=== PATIENT | female | born 1980 | race Caucasian/White ===

== ENCOUNTER → 2021-06-01 | Outpatient (CLI) | payer OTHER ==
--- NOTE | 2021-06-05 13:45 | MM ---
Reason for exam: screening (asymptomatic). Last mammogram was performed 10 years and 3 months ago. History: Family history of breast cancer in grandmother at age 40 and breast cancer in aunt. Took hormonal contraceptives for 10 years. Physical Findings: A clinical breast exam by your physician is recommended on an annual basis and results should be correlated with mammographic findings. MG 3D Screening Mammo W/Cad Bilateral CC and MLO view(s) were taken. Prior study comparison: February 15, 2011, bilateral digital screening mammo w/CAD. The breast tissue is heterogeneously dense. This may lower the sensitivity of mammography. No significant changes when compared with prior studies. ASSESSMENT: Negative, BI-RAD 1 RECOMMENDATION: Routine screening mammogram of both breasts in 1 year.
== END | disposition home or self-care (01) ==
LOC: RADMAMWWP 10:56
PROVIDERS: ATTEND Family Medicine
DX: Z12.31 Encounter for screening mammogram for malignant neoplasm of breast (principal); Z80.3 Family history of malignant neoplasm of breast
CPT/HCPCS: 77063; 77067

== ENCOUNTER 2021-12-10 04:12 | Emergency (ER) | payer OTHER ==
[2021-12-10 04:47] VITALS: RESP 19; TEMP 98.2
--- NOTE | 2021-12-10 05:48 | ED ---
Recheck HPI <NegraJessica Km - Last Filed: 12/10/21 09:30> - General Source: patient, family, RN notes reviewed, old records reviewed Mode of arrival: wheelchair Limitations: no limitations - History of Present Illness MD Complaint: other (Concern for leg and ankle swelling) -: hour(s) Returns Today for: persistent/worsening pain related to initial visit Symptoms Since Prior Visit: worsening pain Associated Symptoms: none Treatments Prior to Arrival: other (none) <Abdullahi Macias - Last Filed: 12/10/21 22:56> - General Chief Complaint: Extremity Injury, Lower Stated Complaint: Leg Swelling Time Seen by Provider: 12/10/21 04:52 - History of Present Illness Initial Comments: This is a 41-year-old female who believes that she may have the beginnings or onset of peripheral arterial disease she is scheduled to see vascular surgery. Patient really has no significant medical history no significant are prior episodes of leg swelling. Patient states she was recently a long car ride and now has swollen ankles, she is concerned that worst prefer to go disease maybe recurrent PAD (Abdullahi Macias) - Related Data Previous Rx's Medication Instructions Recorded Cephalexin [Keflex] 250 mg PO Q6HR #10 day 12/23/13 Allergies Allergy/AdvReac Type Severity Reaction Status Date / Time No Known Allergies Allergy Verified 12/10/21 04:47 Review of Systems ROS Other: All systems not noted in ROS Statement are negative. <YvesedelmiraAugustoJessica Km - Last Filed: 12/10/21 09:30> ROS Other: All systems not noted in ROS Statement are negative. <Abdullahi Macias - Last Filed: 12/10/21 22:56> ROS Statement: Those systems with pertinent positive or pertinent negative responses have been documented in the HPI. 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 History of Any Multi-Drug Resistant Organisms: None Reported Past Surgical History: Tubal Ligation Past Psychological History: No Psychological Hx Reported Smoking Status: Never smoker Past Alcohol Use History: None Reported Past Drug Use History: None Reported <Abdullahi Macias - Last Filed: 12/10/21 22:56> General Exam General appearance: alert, in no apparent distress Head exam: Present: atraumatic, normocephalic, normal inspection Eye exam: Present: normal appearance, PERRL, EOMI. Absent: scleral icterus, conjunctival injection, periorbital swelling ENT exam: Present: normal exam, mucous membranes moist Neck exam: Present: normal inspection. Absent: tenderness, meningismus, lymphadenopathy Respiratory exam: Present: normal lung sounds bilaterally. Absent: respiratory distress, wheezes, rales, rhonchi, stridor Cardiovascular Exam: Present: regular rate, normal rhythm, normal heart sounds. Absent: systolic murmur, diastolic murmur, rubs, gallop, clicks GI/Abdominal exam: Present: soft, normal bowel sounds. Absent: distended, tenderness, guarding, rebound, rigid Extremities exam: Present: normal inspection, full ROM, normal capillary refill. Absent: tenderness, pedal edema, joint swelling, calf tenderness Back exam: Present: normal inspection Neurological exam: Present: alert, oriented X3, CN II-XII intact Psychiatric exam: Present: normal affect, normal mood Skin exam: Present: warm, dry, intact, normal color. Absent: rash <Abdullahi Macias - Last Filed: 12/10/21 22:56> - General Exam Comments Initial Comments: Good dorsalis pedis and posterior tibialis pulses bilaterally, +1 edema mostly ankle no pretibial edema (Abdullahi Macias) Course <Abdullahi Macias - Last Filed: 12/10/21 22:56> Vital Signs 12/10/21 12/10/21 04:41 06:47 Temperature 98.2 F Pulse Rate 81 74 Respiratory 19 Rate Blood Pressure 112/69 126/80 O2 Sat by Pulse 100 Oximetry - Reevaluation(s) Reevaluation #1: 12/10/21 Medical record is reviewed (Abdullahi Macias) Reevaluation #2: 12/10/21 Spoke length with patient regarding symptoms and findings, possible causes (Abdullahi Macias) Medical Decision Making - Lab Data Result diagrams: 12/10/21 06:46 12/10/21 06:46 <Jessica Omer - Last Filed: 12/10/21 09:30> - Lab Data Result diagrams: 12/10/21 06:46 12/10/21 06:46 - EKG Data -: EKG Interpreted by Me (EKG is sinus rhythm 7 [place] 159 QRS 87 QTc 411) <Abdullahi Macias - Last Filed: 12/10/21 22:56> - Medical Decision Making Patient was signed out to me pending laboratory studies and Doppler ultrasound. Laboratory studies are within normal limits. Venous Doppler symmetry no signs of DVT. Patient resting comfortably in the room. Swelling has decreased since she has been nonambulatory. I discussed diagnosis, differential treatment options. Patient will be discharged home and is to follow up with Dr. Melgar for her history of arterial disease. Instructed to return for any new or worsening symptoms. Patient was discharged home in stable condition (Jessica Omer) - Lab Data Lab Results 12/10/21 12/10/21 12/10/21 Range/Units 06:46 06:46 06:46 WBC 5.0 (3.8-10.6) k/uL RBC 4.89 (3.80-5.40) m/uL Hgb 13.4 (11.4-16.0) gm/dL Hct 43.7 (34.0-46.0) % MCV 89.3 (80.0-100.0) fL MCH 27.5 (25.0-35.0) pg MCHC 30.8 L (31.0-37.0) g/dL RDW 12.0 (11.5-15.5) % Plt Count 255 (150-450) k/uL MPV 7.8 Neutrophils % 57 % Lymphocytes % 26 % Monocytes % 8 % Eosinophils % 4 % Basophils % 1 % Neutrophils # 2.8 (1.3-7.7) k/uL Lymphocytes # 1.3 (1.0-4.8) k/uL Monocytes # 0.4 (0-1.0) k/uL Eosinophils # 0.2 (0-0.7) k/uL Basophils # 0.1 (0-0.2) k/uL Sodium 139 (137-145) mmol/L Potassium 4.4 (3.5-5.1) mmol/L Chloride 108 H (98-107) mmol/L Carbon Dioxide 24 (22-30) mmol/L Anion Gap 7 mmol/L BUN 12 (7-17) mg/dL Creatinine 0.51 L (0.52-1.04) mg/dL Est GFR (CKD-EPI)AfAm >90 (>60 ml/min/1.73 sqM) Est GFR (CKD-EPI)NonAf >90 (>60 ml/min/1.73 sqM) Glucose 97 (74-99) mg/dL Calcium 9.2 (8.4-10.2) mg/dL Phosphorus 3.8 (2.5-4.5) mg/dL Magnesium 1.9 (1.6-2.3) mg/dL Total Bilirubin 0.2 (0.2-1.3) mg/dL AST 25 (14-36) U/L ALT 25 (4-34) U/L Alkaline Phosphatase 72 (38-126) U/L Troponin I <0.012 (0.000-0.034) ng/mL NT-Pro-B Natriuret Pep pg/mL Total Protein 6.5 (6.3-8.2) g/dL Albumin 4.0 (3.5-5.0) g/dL 12/10/21 Range/Units 06:46 WBC (3.8-10.6) k/uL RBC (3.80-5.40) m/uL Hgb (11.4-16.0) gm/dL Hct (34.0-46.0) % MCV (80.0-100.0) fL MCH (25.0-35.0) pg MCHC (31.0-37.0) g/dL RDW (11.5-15.5) % Plt Count (150-450) k/uL MPV Neutrophils % % Lymphocytes % % Monocytes % % Eosinophils % % Basophils % % Neutrophils # (1.3-7.7) k/uL Lymphocytes # (1.0-4.8) k/uL Monocytes # (0-1.0) k/uL Eosinophils # (0-0.7) k/uL Basophils # (0-0.2) k/uL Sodium (137-145) mmol/L Potassium (3.5-5.1) mmol/L Chloride (98-107) mmol/L Carbon Dioxide (22-30) mmol/L Anion Gap mmol/L BUN (7-17) mg/dL Creatinine (0.52-1.04) mg/dL Est GFR (CKD-EPI)AfAm (>60 ml/min/1.73 sqM) Est GFR (CKD-EPI)NonAf (>60 ml/min/1.73 sqM) Glucose (74-99) mg/dL Calcium (8.4-10.2) mg/dL Phosphorus (2.5-4.5) mg/dL Magnesium (1.6-2.3) mg/dL Total Bilirubin (0.2-1.3) mg/dL AST (14-36) U/L ALT (4-34) U/L Alkaline Phosphatase (38-126) U/L Troponin I (0.000-0.034) ng/mL NT-Pro-B Natriuret Pep 211 pg/mL Total Protein (6.3-8.2) g/dL Albumin (3.5-5.0) g/dL Disposition Is patient prescribed a controlled substance at d/c from ED?: No Time of Disposition: 09:23 <Jessica Omer - Last Filed: 12/10/21 09:30> Is patient prescribed a controlled substance at d/c from ED?: No <Abdullahi Macias - Last Filed: 12/10/21 22:56> Clinical Impression: Bilateral leg edema Disposition: HOME SELF-CARE Condition: Good Instructions (If sedation given, give patient instructions): Leg Edema (ED) Additional Instructions: Follow up with Dr. Melgar for further evaluation of your peripheral edema. Return for any new or worsening symptoms. Referrals: Anjum Camara MD [Primary Care Provider] - 1-2 days Alfonzo Melgar DO [STAFF PHYSICIAN] - 1-2 days
--- NOTE | 2021-12-10 07:08 | XR ---
EXAMINATION TYPE: XR chest 1V portable DATE OF EXAM: 12/10/2021 COMPARISON: NONE HISTORY: Leg edema TECHNIQUE: Single view FINDINGS: Heart is normal. Lungs are clear of infiltrate. No heart failure. There are chest leads. Leobardo ny thorax appears normal. IMPRESSION: Normal chest.
[2021-12-10 07:13] VITALS: BP 126/80; PULSE 74
[2021-12-10 07:27] LABS: Basophils # (A) 0.1 k/uL (0-0.2); Basophils % (A) 1 %; Eosinophils # (A) 0.2 k/uL (0-0.7); Eosinophils % (A) 4 %; HCT 43.7 % (34.0-46.0); HGB 13.4 gm/dL (11.4-16.0); Lymphocytes # (A) 1.3 k/uL (1.0-4.8); Lymphocytes % (A) 26 %; MCH 27.5 pg (25.0-35.0); MCHC 30.8 g/dL (31.0-37.0); MCV 89.3 fL (80.0-100.0); Mean Platelet Volume 7.8; Monocytes # (A) 0.4 k/uL (0-1.0); Monocytes % (A) 8 %; Neutrophils # (A) 2.8 k/uL (1.3-7.7); Neutrophils % (A) 57 %; Platelet Count 255 k/uL (150-450); RBC 4.89 m/uL (3.80-5.40)
[2021-12-10 07:38] LABS: ALT 25 U/L (4-34); AST 25 U/L (14-36); African American GFR (CKD) >90 (>60 ml/min/1.73 sqM); Alkaline Phosphatase 72 U/L (38-126); Anion Gap 7 mmol/L; Blood Urea Nitrogen 12 mg/dL (7-17); Calcium 9.2 mg/dL (8.4-10.2); Carbon Dioxide 24 mmol/L (22-30); Chloride 108 mmol/L (98-107); Glucose 97 mg/dL (74-99); Magnesium 1.9 mg/dL (1.6-2.3); Non-African American GFR(CKD) >90 (>60 ml/min/1.73 sqM); Phosphorus 3.8 mg/dL (2.5-4.5); Potassium 4.4 mmol/L (3.5-5.1); Sodium 139 mmol/L (137-145); Total Bilirubin 0.2 mg/dL (0.2-1.3); Total Protein 6.5 g/dL (6.3-8.2)
--- NOTE | 2021-12-10 09:17 | US ---
EXAMINATION TYPE: US venous doppler duplex LE DATE OF EXAM: 12/10/2021 8:41 AM COMPARISON: XR Chest CLINICAL HISTORY: b/l le swelling, recent travel. Bilateral leg swelling. No hx of DVT. Patient does not take blood thinners. Recent travel. SIDE PERFORMED: Bilateral TECHNIQUE: The lower extremity deep venous system is examined utilizing real time linear array sonog marzena with graded compression, doppler sonography and color-flow sonography. VESSELS IMAGED: Common Femoral Vein Deep Femoral Vein Greater Saphenous Vein * Femoral Vein Popliteal Vein Small Saphenous Vein * Proximal Calf Veins (* superficial vessels) Right Leg: No evidence of DVT in veins imaged at this time. Left Leg: No evidence of DVT in veins imaged at this time. IMPRESSION: 1. Bilateral lower extremity ultrasound negative for deep venous thrombosis
== END 2021-12-10 10:02 | disposition home or self-care (01) ==
LOC: EC 04:12
DX: R60.0 Localized edema (principal)
CPT/HCPCS: 36415; 71045; 80053; 83735; 83880; 84100; 84484; 85025; 93005; 93970; 99284

== ENCOUNTER → 2024-09-14 | Outpatient (CLI) | payer OTHER ==
--- NOTE | 2024-09-14 17:41 | MM ---
Reason for Exam: Screening (asymptomatic). Last mammogram was performed 3 year(s) and 4 month(s) ago. Patient History: Menarche at age 11. First Full-Term at age 21. Patient used Hormonal Contraceptives for 10 years. Maternal grandmother had breast cancer, age 40. Maternal aunt had breast cancer. Risk Values: Malgorzata 5 year model risk: 0.7%. NCI Lifetime model risk: 8.6%. Prior Study Comparison: 02/15/2011 Bilateral Screening Mammogram, [facility]. 06/01/2021 Bilateral Screening Mammogram, [facility]. Tissue Density: The breasts are heterogeneously dense, which may obscure small masses. Findings: Analyzed By CAD. There is no suspicious group of microcalcifications or new suspicious mass in either breast. Overall Assessment: Negative, BI-RAD 1 Management: Screening Mammogram of both breasts in 1 year. Patient should continue monthly self-breast exams. A clinical breast exam by your physician is recommended on an annual basis. This exam should not preclude additional follow-up of suspicious palpable abnormalities. Note on Malgorzata scores and lifetime risk: 1. A Malgorzata score greater than 3% is considered moderate risk. If this is the case, consider specialist referral to assess eligibility for a risk reducing agent. 2. If overall lifetime risk for the development of breast cancer is 20% or higher, the patient may qualify for future screening with alternating mammogram and breast MRI. [facility], , 09/14/2024 5:37 PM. Electronically signed and approved by: Lam Monroy M.D. Radiologist
== END | disposition home or self-care (01) ==
LOC: RADMAMWWP 07:06
PROVIDERS: ATTEND Family Medicine
DX: Z12.31 Encounter for screening mammogram for malignant neoplasm of breast (principal); R92.333 Mammographic heterogeneous density, bilateral breasts; Z80.3 Family history of malignant neoplasm of breast; Z92.0 Personal history of contraception
CPT/HCPCS: 77063; 77067